=== PATIENT | female | born 1985 | race Caucasian/White ===

== ENCOUNTER 2018-07-30 10:53 | Emergency (ER) | payer SELFPAY ==
--- NOTE | 2018-07-30 11:19 | UC ---
Abdominal Pain Male HPI - HPI Summary HPI Summary: 33-year-old female with concerns of potential gastroesophageal reflux disease. Chest pain for greater than nine months. Pain is constant and intermittently "stabbing". In the last week, has had a "bile" and "toxic" taste in mouth. Patient has been worked up by [facility] ED twice and cardiology (Lyn Albert MD) with normal testing. All have said it is overuse. Patient has tried aspirin, ibuprofen, meloxicam, and muscle relaxers with minimal improvement. Patient did not got to PT as instructed. Patient has tried two two week courses of OTC Prilosec that was initially helpful but no longer helpful. No PCP. Patient does have at times discomfort in her chest with palpation on and off for some time and not sure if this is a work-related injury. She has tried to improve her lifestyle in regards to heartburn and has had some mild improvement but no resolution. 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 [ End ] - History of Current Complaint Stated Complaint: HEARTBURN Time Seen by Provider: 07/30/18 11:18 Hx Obtained From: Patient Onset/Duration: Gradual Onset Timing: Intermittent Episodes Lasting: - Allergies/Home Medications Allergies/Adverse Reactions: Allergies Allergy/AdvReac Type Severity Reaction Status Date / Time No Known Allergies Allergy Verified 07/30/18 11:18 PMH/Surg Hx/FS Hx/Imm Hx Previously Healthy: Yes GI/ History: Gastroesophageal Reflux - Family History Known Family History: Positive: Unknown - Social History Occupation: Employed Full-time Review of Systems Gastrointestinal: Other - Reflux Is Patient Immunocompromised?: No All Other Systems Reviewed And Are Negative: Yes Physical Exam Triage Information Reviewed: Yes Appearance: Well-Appearing, No Pain Distress, Well-Nourished Eye Exam: Normal ENT Exam: Normal Dental Exam: Normal Neck exam: Normal Neck: Positive: 1 Respiratory Exam: Normal Cardiovascular Exam: Normal Abdominal Exam: Normal Musculoskeletal Exam: Normal Neurological Exam: Normal Psychological Exam: Normal Skin Exam: Normal Abd Pain Male Course/Dx - Course Course Of Treatment: At this time the diagnosis could be costochondritis from previous injury versus worsening reflux. Advised that she needs to have a primary care physician and she will look into this. Also given referral to gastroenterology if needed if she is not improved as the omeprazole 20 mg did initially help we will try pantoprazole 40 mg to see if they can further reduce her symptoms. There could be hiatal hernia or skin gastritis also occurring. She has been taking numerous anti-inflammatories which could also cause some esophagitis. Advised to take a break from the anti-inflammatories or consider Tylenol instead. If her symptoms worsen please go to the emergency room. Also have to wonder if stress and anxiety are also causing or worsening her symptoms. Otherwise physical examination normal vital signs stable and treat as worsening reflux. - Differential Dx/Clinical Impression Differential Diagnosis/HQI/PQRI: Peptic Ulcer Disease Provider Diagnoses: Gastroesophageal reflux disease. Elevated blood pressure without diagnosis of hypertension Discharge - Sign-Out/Discharge Documenting (check all that apply): Patient Departure All imaging exams completed and their final reports reviewed: No Studies - Discharge Plan Condition: Good Disposition: HOME Prescriptions: Pantoprazole TAB (NF) [Protonix TAB (NF)] 40 mg PO DAILY #30 tab Patient Education Materials: Gastroesophageal Reflux Disease (ED) Referrals: No Primary Care Phys,NOPCP [Primary Care Provider] - 4 Days Cruz Green MD [Medical Doctor] - If Needed (GI referral ) - Billing Disposition and Condition Condition: GOOD Disposition: Home
[2018-07-30 11:22] VITALS: BP 152/80
== END 2018-07-30 11:54 | disposition home or self-care (01) ==
LOC: MERGE 10:53 → UCCORT 10:53
DX: K21.9 Gastro-esophageal reflux disease without esophagitis (principal); R03.0 Elevated blood-pressure reading, without diagnosis of hypertension
CPT/HCPCS: 99202; G0463